=== PATIENT | female | born 1975 | race Two or more races ===

== ENCOUNTER 2016-06-12 10:05 | Emergency (ER) | payer SELFPAY ==
[~2016-06-12] VITALS: Ht 154.9 cm; Wt 63.5 kg
[2016-06-12 10:30] VITALS: BP 112/60
[2016-06-12] MEDS ORDERED: Albuterol ud Inhalation HHN ONE (11:00)
[2016-06-12] MEDS ORDERED: Tylenol #3 tab (300mg/30mg) ORAL ONE (11:00)
--- NOTE | 2016-06-12 11:14 | Emergency Room Report ---
History of Present Illness General Chief Complaint: Upper Respiratory Illness Source: Patient Present Illness HPI 30YO F with 2-3 days productive cough. Non asthmatic, non smoker. No sick contacts. Took theraflyu without improvement. Denies chest pain, SOB. pain to chest with coughing only. Allergies: Coded Allergies: No Known Allergies (Unverified , 06/12/16) Patient History Past Medical History: none Past Surgical History: none Pertinent Family History: none Social History: Denies: alcohol use, drug use, smoking Last Menstrual Period: 04/29/16 Now: No - unsure : 2 Para: 2 Immunizations: UTD Reviewed Nursing Documentation: PMH: Agreed, PSxH: Agreed Nursing Documentation-PMH Past Medical History: No Stated History Review of Systems All Other Systems: negative except mentioned in HPI Physical Exam Vital Signs Date Time Temp Pulse Resp B/P Pulse Ox O2 Delivery O2 Flow Rate FiO2 06/12/16 10:20 99.1 89 16 112/60 98 Room Air 06/12/16 11:02 21 Sp02 EP Interpretation: reviewed, normal General Appearance: normal inspection, well appearing, no apparent distress, alert, GCS 15, non-toxic, other - Repeatedly dry coughing Head: normocephalic, atraumatic Eyes: bilateral eye EOMI, bilateral eye PERRL ENT: normal ENT inspection, hearing grossly normal, normal voice Neck: normal inspection, full range of motion, supple, no bony tend Respiratory: normal inspection, lungs clear, normal breath sounds, no rhonchi, no respiratory distress, no retraction, no accessory muscle use, no wheezing, speaking full sentences Cardiovascular #1: regular rate, rhythm, no edema Gastrointestinal: normal inspection, normal bowel sounds, non tender, soft, no guarding, no hernia Genitourinary: no CVA tenderness Musculoskeletal: normal inspection, back normal, normal range of motion, Ranjit' s Sign negative Neurologic: normal inspection, alert, oriented x3, responsive, motor strength/ tone normal, speech normal Psychiatric: normal inspection, judgement/insight normal, mood/affect normal Skin: normal inspection, normal color, no rash Medical Decision Making Diagnostic Impression: Primary Impression: Upper respiratory infection Qualified Codes: J06.9 - Acute upper respiratory infection, unspecified; B97.89 - Other viral agents as the cause of diseases classified elsewhere ER Course CXR negative for PNA on ED interpretation Improved cough after albuterol T#3 Likely URI, bronchitis Low suspicion for PNA given VSS, well appearance, afebrile Rx Albuterol, T#3, karma parr PRN PMD followup Chest X-Ray Diagnostic Results EP Interpretation: Yes Findings: no consolidation, no effusion, no pneumothorax, no acute cardiopulmonary disease Number of Views: 1 Last Vital Signs Date Time Temp Pulse Resp B/P Pulse Ox O2 Delivery O2 Flow Rate FiO2 06/12/16 11:02 85 16 98 Room Air 21 06/12/16 10:30 99.1 112/60 Status: improved Disposition: HOME, SELF-CARE Referrals: NOT CHOSEN IPA/,REFERRING (PCP) AJIT ARNOLD M.D. Jun 12, 2016 11:14
[2016-06-12] MEDS ORDERED: VENTOLIN HFA18 GM INH (11:18)
[2016-06-12] MEDS ORDERED: ACETAMINOPHEN-1 EAC1 ORAL (11:18)
[2016-06-12 11:32] VITALS: BP 112/60
--- NOTE | 2016-06-12 11:55 | Diagnostic Imaging Report ---
Indication: Chest Pain Comparison: None A single view chest radiograph was obtained. Findings: Cardiomediastinal appearance is within normal limits for age. Pulmonary vascularity is appropriate. The diaphragmatic contour is smooth and costophrenic angles are sharp. No pleural effusions are identified. The bones are unremarkable. Impression: No acute findings
== END 2016-06-12 11:32 | disposition home or self-care (01) ==
LOC: EMR 11:00
DX: J06.9 Acute upper respiratory infection, unspecified (principal); B97.89 Other viral agents as the cause of diseases classified elsewhere
CPT/HCPCS: 71010; 94640; 94664; 99283